=== PATIENT | male | born 1975 | race African-American/Black ===

== ENCOUNTER 2020-03-20 23:42 | Emergency (ER) | payer OTHER ==
[~2020-03-20] VITALS: Ht 170.2 cm; Wt 154.2 kg
[2020-03-21] MEDS ORDERED: LISINOPRIL-HCT1 EAC2 PO (00:05)
[2020-03-21] MEDS ORDERED: NAPROSYN500 MG PO (00:45)
[2020-03-21 02:10] VITALS: BP 158/98
== END 2020-03-21 02:10 | disposition home or self-care (01) ==
LOC: ER 23:42
DX: S67.02XA Crushing injury of left thumb, initial encounter (principal); I10 Essential (primary) hypertension; Z79.899 Other long term (current) drug therapy; Z91.018 Allergy to other foods; W20.8XXA Other cause of strike by thrown, projected or falling object, initial encounter; Y93.89 Activity, other specified; Y92.89 Other specified places as the place of occurrence of the external cause; Y99.8 Other external cause status